=== PATIENT | male | born 1965 | race Caucasian/White ===

== ENCOUNTER 2022-03-01 12:26 | Outpatient (CLI) | payer OTHER ==
[2022-03-01 13:01] LABS: #Basophils 0.1 thou/uL (0.0-0.2); #Eosinphils 0.2 thou/uL (0.0-0.7); #Lymphocytes 2.1 thou/uL (1.20-3.40); #Monocytes 0.9 thou/uL (0.11-0.59); #Neutrophils 5.1 thou/uL (1.40-6.50); %Basophils 1.3 % (0.0-1.0); %Eosinophils 1.9 % (0.0-10.0); %Lymphocytes 25.2 % (21.0-51.0); %Monocytes 10.2 % (0.0-10.0); %Neutrophils 61.4 % (42.0-75.0); Hemoglobin 15.2 g/dL (14.0-18.0); Mean Corpuscular HGB CONC 34.2 g/dL (32.0-36.0); Mean Corpuscular Hemoglobin 33.7 pg (27.0-31.0); Mean Corpuscular Volume 98.4 fl (78.0-98.0); Mean Platelet Volume 6.2 fL (7.4-10.4); Platelet Count 252 10x3/uL (130-400); Red Blood Cell (RBC) Count 4.52 mill/uL (4.70-6.10); White Blood Cell (WBC) Count 8.3 10x3/uL (4.8-10.8)
[2022-03-02 16:14] LABS: Absolute CD4 630 /uL (359-1519); Lymphocytes/Gated Cell Count 2.1 x10E3/uL (0.7-3.1); Total Lymphocyte 25 % (Not Estab.); WBC Total Count 8.4 x10E3/uL (3.4-10.8)
== END 2022-03-01 12:27 | disposition home or self-care (01) ==
LOC: NAV RAD 12:26
PROVIDERS: ATTEND Family Medicine
DX: Z02.71 Encounter for disability determination (principal); B20 Human immunodeficiency virus [HIV] disease; J45.50 Severe persistent asthma, uncomplicated
CPT/HCPCS: 36415; 71046; 85025; 86361